=== PATIENT | female | born 1950 | race Caucasian/White ===

== ENCOUNTER 2016-12-17 12:42 | Emergency (ER) | payer OTHER ==
[2016-12-17 12:56] VITALS: TEMP 99.7
[2016-12-17] MEDS ORDERED: IPRATROPIUM/ALBUTEROL 3 ML DEYVIAL IH ONE (13:09)
[2016-12-17] MEDS ORDERED: methylPREDNISolone SOD SUCC 125 MG/2 ML VIAL IVP ONE (13:09)
[2016-12-17] MEDS ORDERED: IPRATROPIUM/ALBUTEROL 3 ML DEYVIAL ONE (13:11)
--- NOTE | 2016-12-17 13:13 | EDPHY ---
H & P Time Seen by Provider: 12/17/16 13:00 HPI/ROS: CHIEF COMPLAINT: shortness of breath HISTORY OF PRESENT ILLNESS: Patient is a 66-year-old female with a history of asthma and COPD presents to the emergency department with worsening upper respiratory illness. She states she developed congestion and cough 1 week ago. She cough significantly is able to produce only a little bit of clear phlegm. She denies chest pain. No fevers or chills. No nausea or vomiting. Patient went to see her primary care physician's office today and saw a covering physician. She states they were unable to get my oxygen above 90 so they sent me to the ER. She was given a breathing treatment at the primary office. She feels slightly better after this treatment. REVIEW OF SYSTEMS: My complete review of systems is negative except as mentioned in the HPI. Past Medical/Surgical History: Includes COPD and asthma Past surgical history: Foot surgery Social history: The patient does not smoke. She denies marijuana use. Smoking Status: Former smoker Physical Exam: GENERAL: Well-appearing, in no acute distress, alert. HEENT: Eyes normal to inspection, normal pharynx, no signs of dehydration. NECK: No thyromegaly, no lymphadenopathy, supple. RESPIRATORY: Clear to auscultation bilaterally, no rales, rhonchi or wheezing. CVS: coarse breath sounds bilaterally. Scattered upper wheezes bilaterally. No accessary muscle use. No rales or rhonchi. ABDOMEN: Soft, nontender, nondistended, no organomegaly. BACK: Normal to inspection, no CVA tenderness. SKIN: Normal color, no rash, warm, dry. No pallor. EXTREMITIES: No pedal edema, no calf tenderness, no Homans sign or cords, no joint swelling. NEURO/PSYCH: Alert and oriented x3, normal mood and affect, normal motor sensory exam. Constitutional: Initial Vital Signs Temperature (C) 37.6 C 12/17/16 12:45 Heart Rate 107 H 12/17/16 12:45 Respiratory Rate 20 12/17/16 12:45 Blood Pressure 128/75 H 12/17/16 12:45 O2 Sat (%) 84 L 12/17/16 12:45 O2 Delivery Mode Nasal Cannula O2 (L/minute) 2 Allergies/Adverse Reactions: Cat/Feline Produc *RETIRED-08/11/12 [Cat/Feline Product Derivatives] Allergy ( Verified 12/17/16 12:57) cefazolin sodium [From Ancef] Allergy (Verified 12/17/16 12:57) Rash nafcillin [Nafcillin] Allergy (Verified 12/17/16 12:57) HYPOKALEMIA Home Medications: Medication Instructions Recorded Azithromycin 250 mg PO DAILY #4 tablet 12/17/16 Dulera 200 Mcg/5 Mcg Inhaler 12/17/16 GABAPENTIN 12/17/16 Irbesartan 12/17/16 Lovastatin 12/17/16 Proair Hfa Icu (*) 12/17/16 predniSONE 40 mg PO DAILY 4 Days 12/17/16 Medical Decision Making - Diagnostics EKG Interpretation: EKG shows normal sinus rhythm, normal rate, normal axis, normal intervals. There are no ST or T-wave abnormalities. EKG is normal as interpreted by me. ED Course/Re-evaluation: In the emergency department I discussed possible etiologies with the patient and answered all her questions. The patient was noted to have an oxygen saturation of 91-93% while I was speaking with her in the room. She was not placed on supplemental oxygen at this time. She was given Solu-Medrol 125 mg IV and a DuoNeb (it is unclear the type of neb treatment they gave her at her primary care physician's office.) Laboratory studies and chest x-ray were ordered. I rechecked the patient on numerous occasions. She states she improved while here. On recheck her oxygen saturation was above 90%. The chest x-ray: Please refer the dictated report. I reviewed the imaging studies. There is no focal infiltrate. Patient does have findings of bronchitis I discussed the result with the patient. 1440: The patient ambulated well without any shortness of breath. Her oxygen saturation with no supplemental oxygen was 91-95% with ambulation. I discussed disposition options. The patient feels comfortable being discharged. She was given azithromycin orally prior to leaving the emergency department. Patient was given a prescription of prednisone. She will continue the inhaler. She will follow up closely with Dr. Brayan Prasad. She was given warnings prior to leaving. She will return with worsening symptoms. Differential Diagnosis: My differential includes but is not limited to COPD exacerbation, pneumonia, bronchitis, ACS, acute NE, bacteremia, sepsis, electrolyte abnormality, sugar abnormality - Data Points Laboratory Results: Laboratory Results 12/17/16 13:10 12/17/16 13:10 12/17/16 13:10 WBC 5.68 10^3/uL (3.80-9.50) RBC 4.63 10^6/uL (4.18-5.33) Hgb 16.4 H g/dL (12.6-16.3) Hct 48.0 H % (38.0-47.0) MCV 103.7 H fL (81.5-99.8) MCH 35.4 H pg (27.9-34.1) MCHC 34.2 g/dL (32.4-36.7) RDW 12.6 % (11.5-15.2) Plt Count 234 10^3/uL (150-400) MPV 9.3 fL (8.7-11.7) Neut % (Auto) 62.7 % (39.3-74.2) Lymph % (Auto) 23.4 % (15.0-45.0) [place] % (Auto) 11.8 % (4.5-13.0) Eos % (Auto) 1.4 % (0.6-7.6) Baso % (Auto) 0.5 % (0.3-1.7) Nucleat RBC Rel Count 0.0 % (0.0-0.2) Absolute Neuts (auto) 3.56 10^3/uL (1.70-6.50) Absolute Lymphs (auto) 1.33 10^3/uL (1.00-3.00) Absolute Monos (auto) 0.67 10^3/uL (0.30-0.80) Absolute Eos (auto) 0.08 10^3/uL (0.03-0.40) Absolute Basos (auto) 0.03 10^3/uL (0.02-0.10) Absolute Nucleated RBC 0.00 10^3/uL (0-0.01) Immature Gran % 0.2 % (0.0-1.1) Immature Gran # 0.01 10^3/uL (0.00-0.10) Sodium 140 mEq/L (134-144) Potassium 4.0 mEq/L (3.5-5.2) Chloride 100 mEq/L (97-110) Carbon Dioxide 28 mEq/l (22-31) Anion Gap 12 mEq/L (8-16) BUN 15 mg/dL (7-23) Creatinine 0.8 mg/dL (0.6-1.0) Estimated GFR > 60 Glucose 95 mg/dL (70-100) Calcium 9.6 mg/dL (8.5-10.4) NT-Pro-B Natriuret Pep 153 H pg/mL (0-125) Medications Given: Discontinued Medications Albuterol/Ipratropium (Duoneb) 3 ml IH EDNOW ONE Stop: 12/17/16 13:10 Last Admin: 12/17/16 13:23 Dose: 3 ml Methylprednisolone Sodium Succinate (Solu-Medrol) 125 mg IVP EDNOW ONE Stop: 12/17/16 13:10 Last Admin: 12/17/16 13:22 Dose: 125 mg Departure - Departure Disposition: Home, Routine, Self-Care Clinical Impression: Chronic obstructive pulmonary disease with acute exacerbation Condition: Good Instructions: COPD (Chronic Obstructive Pulmonary Disease) (ED) Additional Instructions: Take your medications as directed. Return with increasing shortness of breath, chest pain, shortness of breath or any other concerns. Referrals: Rodriguez Prasad MD [Primary Care Provider] - 1-2 days without fail
--- NOTE | 2016-12-17 13:18 | CPEKG ---
Heart Rate: 97 RR Interval: 619 P-R Interval: 144 QRSD Interval: 88 QT Interval: 324 QTC Interval: 412 P Hubbard: 51 QRS Hubbard: 33 T Wave Hubbard: 40 EKG Severity - OTHERWISE NORMAL ECG - EKG Impression: SINUS RHYTHM EKG Impression: LOW VOLTAGE IN FRONTAL LEADS Electronically Signed By: Miranda Marquez 17-Dec-2016 16:33:27
[2016-12-17 13:27] LABS: % IMMATURE GRANULYOCYTES 0.2 % (0.0-1.1); ABSOLUTE IMMATURE GRANULOCYTES 0.01 10^3/uL (0.00-0.10); ADD DIFF? NO; ADD MORPH? NO; ADD SCAN? NO; ATYPICAL LYMPHOCYTE FLAG 40 (0-99); FRAGMENT RBC FLAG 0 (0-99); HEMOGLOBIN 16.4 g/dL (12.6-16.3); LEFT SHIFT FLG 0 (0-99); LIPEMIA HEMOLYSIS FLAG 90 (0-99); MEAN CELL HEMOGLOBIN 35.4 pg (27.9-34.1); MEAN CELL HEMOGLOBIN CONCENTR. 34.2 g/dL (32.4-36.7); MEAN CELL VOLUME 103.7 fL (81.5-99.8); MEAN PLATELET VOLUME 9.3 fL (8.7-11.7); PLATELET CLUMPS FLAG 0 (0-99); PLATELET COUNT 234 10^3/uL (150-400); RED BLOOD CELL COUNT 4.63 10^6/uL (4.18-5.33); RED CELL DISTRIBUTION WIDTH 12.6 % (11.5-15.2)
[2016-12-17 13:47] LABS: ANION GAP 12 mEq/L (8-16); CALCIUM 9.6 mg/dL (8.5-10.4); CARBON DIOXIDE 28 mEq/l (22-31); CHLORIDE 100 mEq/L (97-110); CREATININE 0.8 mg/dL (0.6-1.0); GLOMERULAR FILTRATION RATE > 60; GLUCOSE 95 mg/dL (70-100); SODIUM 140 mEq/L (134-144)
[2016-12-17 14:04] VITALS: RESP 18
--- NOTE | 2016-12-17 14:22 | DX ---
PA and lateral chest - December 17, 2016 History: Dyspnea. Comparison: PA and lateral chest of November 12, 2013. Findings: The lungs are hyperexpanded with diffuse peribronchial thickening without focal consolidati on. Previously noted right mid lung atelectasis/scarring has nearly completely resolved. There is no pneumothorax or pleural effusion. The heart and pulmonary vasculature are normal. Mild degenerative c hange is present in the spine. Impression: Diffuse peribronchial thickening suggesting airways disease/bronchitis.
[2016-12-17] MEDS ORDERED: AZITHROMYCIN 250 MG TAB PO ONE (14:45)
[2016-12-17 14:56] VITALS: BP 132/84; PULSE 99; O2SAT 93
== END 2016-12-17 14:56 | disposition home or self-care (01) ==
DX: J44.1 Chronic obstructive pulmonary disease with (acute) exacerbation (principal); J45.909 Unspecified asthma, uncomplicated; Z87.891 Personal history of nicotine dependence
CPT/HCPCS: 96374

== ENCOUNTER 2016-12-20 13:55 | Inpatient (IN) | payer OTHER ==
--- NOTE | 2016-12-20 14:20 | EDPHY ---
H & P Time Seen by Provider: 12/20/16 14:12 HPI/ROS: CHIEF COMPLAINT: shortness of breath, cough HISTORY OF PRESENT ILLNESS: Patient is a 66-year-old female who presents to the emergency department with ongoing shortness of breath and hypoxia. The patient was seen in the emergency department on Saturday by me. Please refer to my dictated note. At that time the patient was given azithromycin and prednisone. She states that it drastically improved her symptoms but she still felt fatigued and tired. She states her sputum has turned yellow. She continues to have a significant cough. She now has bilateral rib pain secondary to coughing. She denies nausea or vomiting. She went to see her nurse practitioner in follow-up today and was found to have an oxygen saturation of 78%. No leg pain or swelling. REVIEW OF SYSTEMS: My complete review of systems is negative except as mentioned in the HPI. Past Medical/Surgical History: Includes COPD/asthma Social history: The patient does not smoke Smoking Status: Former smoker Physical Exam: 36.7, 132/65, 99, 16, 78% on room air Patient was placed on supplemental oxygen. Her oxygen saturation was in the 90s. GENERAL: No acute distress, alert. Patient is standing at the side of her bed going through her purse. HEENT: Eyes normal to inspection, normal pharynx, no signs of dehydration. NECK: No thyromegaly, no lymphadenopathy, supple. RESPIRATORY: patient has rales bilaterally. There is scattered wheezing.. CVS: Regular rate and rhythm, no rubs, murmurs, or gallops. ABDOMEN: Soft, nontender, nondistended, no organomegaly. BACK: Normal to inspection, no CVA tenderness. SKIN: Normal color, no rash, warm, dry. No pallor. EXTREMITIES: No pedal edema, no calf tenderness, no Homans sign or cords, no joint swelling. NEURO/PSYCH: [Alert and oriented, normal mood and affect Constitutional: Initial Vital Signs Temperature (C) 36.7 C 12/20/16 13:57 Heart Rate 99 12/20/16 13:57 Respiratory Rate 16 12/20/16 13:57 Blood Pressure 132/65 H 12/20/16 13:57 O2 Sat (%) 78 L 12/20/16 13:57 O2 Delivery Mode Nasal Cannula O2 (L/minute) 4 Allergies/Adverse Reactions: Cat/Feline Produc *RETIRED-08/11/12 [Cat/Feline Product Derivatives] Allergy ( Verified 12/17/16 12:57) cefazolin sodium [From Ancef] Allergy (Verified 12/17/16 12:57) Rash nafcillin [Nafcillin] Allergy (Verified 12/17/16 12:57) HYPOKALEMIA Home Medications: Medication Instructions Recorded Azithromycin 250 mg PO DAILY #4 tablet 12/17/16 Dulera 200 Mcg/5 Mcg Inhaler 2 puffs IH BID PRN 12/17/16 Gabapentin [Neurontin 300 MG (*)] 300 mg PO TID 12/17/16 Irbesartan [Avapro 150 mg (*)] 150 mg PO HS 12/17/16 Lovastatin 40 mg PO HS 12/17/16 Proair Hfa Icu (*) 2 puffs IH BID PRN 12/17/16 predniSONE 40 mg PO DAILY 4 Days 12/17/16 Medical Decision Making ED Course/Re-evaluation: In the emergency department I discussed possible etiologies with the patient. I reviewed her previous record. Laboratory studies including blood cultures were ordered. Chest x-ray was ordered. Patient was given Levaquin 750 mg IV. Patient's initial lab showed an elevated heart rate at 99. However, respiratory rate was normal. She is afebrile. O2 saturation was no at 78%. She did not meet sepsis criteria on initial evaluation. She was noted to have an elevated lactic acid 2.2. She is given normal saline hydration. I discussed the plan for admission with the patient and answered all her questions. 1444: I reviewed the patient's x-ray. There is no obvious focal infiltrate. I discussed the case with Dr. Gilman. He will accept the patient to [facility]. Laboratory studies are still pending. The patient is aware the plan. Dr. Gilman saw the patient in the emergency department. He recommended I give the patient prednisone 20 mg orally. This was ordered. Differential Diagnosis: My differential includes but is not limited to COPD exacerbation, pneumonia, bronchitis, empyema, hypoxemia, bacteremia, sepsis - Data Points Laboratory Results: Laboratory Results 12/20/16 14:35 12/20/16 14:35 12/20/16 14:35 WBC 9.41 10^3/uL (3.80-9.50) RBC 4.24 10^6/uL (4.18-5.33) Hgb 15.1 g/dL (12.6-16.3) Hct 43.9 % (38.0-47.0) MCV 103.5 H fL (81.5-99.8) MCH 35.6 H pg (27.9-34.1) MCHC 34.4 g/dL (32.4-36.7) RDW 12.5 % (11.5-15.2) Plt Count 260 10^3/uL (150-400) MPV 9.5 fL (8.7-11.7) Neut % (Auto) 83.9 H % (39.3-74.2) Lymph % (Auto) 12.5 L % (15.0-45.0) [place] % (Auto) 2.9 L % (4.5-13.0) Eos % (Auto) 0.0 L % (0.6-7.6) Baso % (Auto) 0.3 % (0.3-1.7) Nucleat RBC Rel Count 0.0 % (0.0-0.2) Absolute Neuts (auto) 7.89 H 10^3/uL (1.70-6.50) Absolute Lymphs (auto) 1.18 10^3/uL (1.00-3.00) Absolute Monos (auto) 0.27 L 10^3/uL (0.30-0.80) Absolute Eos (auto) 0.00 L 10^3/uL (0.03-0.40) Absolute Basos (auto) 0.03 10^3/uL (0.02-0.10) Absolute Nucleated RBC 0.00 10^3/uL (0-0.01) Immature Gran % 0.4 % (0.0-1.1) Immature Gran # 0.04 10^3/uL (0.00-0.10) ABG Lactic Acid 2.2 H mmol/L (0.5-1.6) Sodium 143 mEq/L (134-144) Potassium 4.1 mEq/L (3.5-5.2) Chloride 105 mEq/L (97-110) Carbon Dioxide 25 mEq/l (22-31) Anion Gap 13 mEq/L (8-16) BUN 24 H mg/dL (7-23) Creatinine 0.8 mg/dL (0.6-1.0) Estimated GFR > 60 Glucose 157 H mg/dL (70-100) Calcium 9.7 mg/dL (8.5-10.4) Troponin I < 0.012 ng/mL (0-0.034) NT-Pro-B Natriuret Pep 126 H pg/mL (0-125) Medications Given: Discontinued Medications Albuterol/Ipratropium (Duoneb) 3 ml IH EDNOW ONE Stop: 12/20/16 14:22 Last Admin: 12/20/16 14:45 Dose: 3 ml Departure - Departure Disposition: [facility] Inpatient Acute Clinical Impression: Chronic obstructive pulmonary disease with acute exacerbation, Hypoxia Condition: Good
[2016-12-20] MEDS ORDERED: IPRATROPIUM/ALBUTEROL 3 ML DEYVIAL IH ONE (14:21)
[2016-12-20] MEDS ORDERED: ONDANSETRON DISINTEGRATING 4 MG TAB PO PRN (14:48)
[2016-12-20] MEDS ORDERED: ALBUTEROL 3 ML DEYVIAL IH PRN (14:48)
[2016-12-20] MEDS ORDERED: ACETAMINOPHEN 325 MG TAB PO PRN (14:48)
[2016-12-20 14:49] LABS: % IMMATURE GRANULYOCYTES 0.4 % (0.0-1.1); ABSOLUTE IMMATURE GRANULOCYTES 0.04 10^3/uL (0.00-0.10); ADD DIFF? NO; ADD MORPH? NO; ADD SCAN? NO; ATYPICAL LYMPHOCYTE FLAG 50 (0-99); FRAGMENT RBC FLAG 0 (0-99); HEMATOCRIT 43.9 % (38.0-47.0); HEMOGLOBIN 15.1 g/dL (12.6-16.3); LEFT SHIFT FLG 0 (0-99); LIPEMIA HEMOLYSIS FLAG 90 (0-99); MEAN CELL HEMOGLOBIN 35.6 pg (27.9-34.1); MEAN CELL HEMOGLOBIN CONCENTR. 34.4 g/dL (32.4-36.7); MEAN CELL VOLUME 103.5 fL (81.5-99.8); MEAN PLATELET VOLUME 9.5 fL (8.7-11.7); PLATELET CLUMPS FLAG 0 (0-99); PLATELET COUNT 260 10^3/uL (150-400); RED BLOOD CELL COUNT 4.24 10^6/uL (4.18-5.33); RED CELL DISTRIBUTION WIDTH 12.5 % (11.5-15.2)
--- NOTE | 2016-12-20 14:50 | DX ---
Chest PA and lateral HISTORY: Cough, hypoxic. FINDINGS: Compare December 17, 2016, and November 12, 2013. New subtle infiltrate is found in the left lower lobe, adjacent to the left hemidiaphragm. No pleural effusion. Right lung is clear. Heart size remains normal. IMPRESSION: Mild pneumonia, left lower lobe.
[2016-12-20 15:04] LABS: ANION GAP 13 mEq/L (8-16); CALCIUM 9.7 mg/dL (8.5-10.4); CARBON DIOXIDE 25 mEq/l (22-31); CHLORIDE 105 mEq/L (97-110); CREATININE 0.8 mg/dL (0.6-1.0); GLOMERULAR FILTRATION RATE > 60; GLUCOSE 157 mg/dL (70-100); POTASSIUM 4.1 mEq/L (3.5-5.2); SODIUM 143 mEq/L (134-144)
[2016-12-20] MEDS ORDERED: NS 1,000 ML IV ONE ×2 (15:06→15:08)
[2016-12-20 15:14] LABS: TROPONIN I < 0.012 ng/mL (0-0.034)
[2016-12-20] MEDS ORDERED: predniSONE 20 MG TAB PO ONE (15:15)
--- NOTE | 2016-12-20 15:26 | PDGENHP ---
History and Physical - Chief Complaint Shortness of breath - History of Present Illness Primary care provider: Dr. Prasad Chief complaint: Acute shortness of breath History of present illness: 66-year-old female presenting with acute shortness of breath characterized as difficulty exhaling with associated productive cough and generalized fatigue. Onset of symptoms was approximately 2 weeks ago the symptoms, duration has been persistent thereafter, became particularly violaceous 1 week ago. She reports that her shortness of breath is slightly decreased with use of Proventil inhaler and she has continued to utilize her Dulera during this interval. She was initiated on steroids and azithromycin 4 days ago and has been adherent to these medications. Her shortness of breath is exacerbated with activity, and her SpO2 was 78% on room air on her clinical evaluation today. Patient otherwise denies any overt chest pain and she reports that beginning of her symptoms she was experiencing chest and sinus congestion. History Information - Allergies/Home Medication List Allergies/Adverse Reactions: Cat/Feline Produc *RETIRED-08/11/12 [Cat/Feline Product Derivatives] Allergy ( Verified 12/17/16 12:57) cefazolin sodium [From Ancef] Allergy (Verified 12/17/16 12:57) Rash nafcillin [Nafcillin] Allergy (Verified 12/17/16 12:57) HYPOKALEMIA Home Medications: Dulera 200 Mcg/5 Mcg Inhaler 2 puffs IH BID PRN 12/17/16 [Last Taken Unknown] Gabapentin [Neurontin 300 MG (*)] 300 mg PO TID 12/17/16 [Last Taken 12/20/16] Irbesartan [Avapro 150 mg (*)] 150 mg PO HS 12/17/16 [Last Taken 12/19/16] Lovastatin 40 mg PO HS 12/17/16 [Last Taken 12/19/16] Proair Hfa Icu (*) 2 puffs IH BID PRN 12/17/16 [Last Taken Unknown] I have personally reviewed and updated: family history, medical history, social history, surgical history - Past Medical History asthma (Reports onset childhood), COPD, hypertension, hyperlipidemia, pulmonary embolism (Once, 5 years ago, reportedly provoked by hospitalization and acute infection) Additional medical history: Chronic lower back pain and continuous opiate dependency - Surgical History Additional surgical history: Tonsillectomy, bunionectomy, hammertoe - Family History Additional family history: Patient is adopted and she does not know any of her family history - Social History Smoking Status: Former smoker Alcohol Use: Occasionally Drug Use: None Additional social history: She is independent in her ADLs Review of Systems ROS: 10pt was reviewed & negative except for what was stated in HPI & below Constitutional: Reports: other (Fatigue) Respiratory: Reports: cough, shortness of breath Physical Exam Temp Pulse Resp BP Pulse Ox 36.7 C 99 16 132/65 H 95 12/20/16 13:57 12/20/16 13:57 12/20/16 13:57 12/20/16 13:57 12/20/16 14:03 Constitutional: no apparent distress, appears nourished, not in pain Eyes: PERRL, anicteric sclera, EOMI Ears, Nose, Mouth, Throat: moist mucous membranes, hearing normal, ears appear normal, no oral mucosal ulcers Cardiovascular: regular rate and rhythym, no murmur, rub, or gallop, No edema Respiratory: reduced air movement (On expiration), expiratory wheeze, bronchial breath sounds, No inspiratory crackles, No respiratory distress Gastrointestinal: normoactive bowel sounds, soft, non-tender abdomen, no palpable masses Skin: warm, normal color, no rashes or abrasions, no fluctuance, no induration, No mottled Neurologic: AAOx3, sensation intact bilaterally, No weakness Psychiatric: interacting appropriately, not anxious, not encephalopathic, thought process linear Lab Data & Imaging Review 12/20/16 14:35 12/20/16 14:35 WBC 9.41 10^3/uL (3.80-9.50) 12/20/16 14:35 RBC 4.24 10^6/uL (4.18-5.33) 12/20/16 14:35 Hgb 15.1 g/dL (12.6-16.3) 12/20/16 14:35 Hct 43.9 % (38.0-47.0) 12/20/16 14:35 MCV 103.5 fL (81.5-99.8) H 12/20/16 14:35 MCH 35.6 pg (27.9-34.1) H 12/20/16 14:35 MCHC 34.4 g/dL (32.4-36.7) 12/20/16 14:35 RDW 12.5 % (11.5-15.2) 12/20/16 14:35 Plt Count 260 10^3/uL (150-400) 12/20/16 14:35 MPV 9.5 fL (8.7-11.7) 12/20/16 14:35 Neut % (Auto) 83.9 % (39.3-74.2) H 12/20/16 14:35 Lymph % (Auto) 12.5 % (15.0-45.0) L 12/20/16 14:35 [place] % (Auto) 2.9 % (4.5-13.0) L 12/20/16 14:35 Eos % (Auto) 0.0 % (0.6-7.6) L 12/20/16 14:35 Baso % (Auto) 0.3 % (0.3-1.7) 12/20/16 14:35 Nucleat RBC Rel Count 0.0 % (0.0-0.2) 12/20/16 14:35 Absolute Neuts (auto) 7.89 10^3/uL (1.70-6.50) H 12/20/16 14:35 Absolute Lymphs (auto) 1.18 10^3/uL (1.00-3.00) 12/20/16 14:35 Absolute Monos (auto) 0.27 10^3/uL (0.30-0.80) L 12/20/16 14:35 Absolute Eos (auto) 0.00 10^3/uL (0.03-0.40) L 12/20/16 14:35 Absolute Basos (auto) 0.03 10^3/uL (0.02-0.10) 12/20/16 14:35 Absolute Nucleated RBC 0.00 10^3/uL (0-0.01) 12/20/16 14:35 Immature Gran % 0.4 % (0.0-1.1) 12/20/16 14:35 Immature Gran # 0.04 10^3/uL (0.00-0.10) 12/20/16 14:35 ABG Lactic Acid 2.2 mmol/L (0.5-1.6) H 12/20/16 14:35 Sodium 143 mEq/L (134-144) 12/20/16 14:35 Potassium 4.1 mEq/L (3.5-5.2) 12/20/16 14:35 Chloride 105 mEq/L (97-110) 12/20/16 14:35 Carbon Dioxide 25 mEq/l (22-31) 12/20/16 14:35 Anion Gap 13 mEq/L (8-16) 12/20/16 14:35 BUN 24 mg/dL (7-23) H 12/20/16 14:35 Creatinine 0.8 mg/dL (0.6-1.0) 12/20/16 14:35 Estimated GFR > 60 12/20/16 14:35 Glucose 157 mg/dL (70-100) H 12/20/16 14:35 Calcium 9.7 mg/dL (8.5-10.4) 12/20/16 14:35 Troponin I < 0.012 ng/mL (0-0.034) 12/20/16 14:35 NT-Pro-B Natriuret Pep 126 pg/mL (0-125) H 12/20/16 14:35 Visualized and Interpreted Chest x-ray results: Yes Chest X-Ray results: no infiltrate Visualized and Interpreted EKG results: Yes EKG Interpretation: Positive for: other (Normal sinus rhythm) Assessment & Plan Assessment: 66-year-old female presents with acute COPD exacerbation Plan: 1. COPD exacerbation. Acute, new problem, further workup indicated. Evidenced by an SpO2 of 78% on room air plus symptomatic shortness of breath plus audible expiratory wheezes and bronchial breath sounds, unclear precipitant. -suspect precipitant is URI, but she has history of pulmonary embolism and should rule out PE with D-dimer -if D-dimer positive, will get CT angiogram, discussed with patient -placed on scheduled nebs, p.r.n. albuterol -increase prednisone to 60 mg daily, patient receiving this at noon daily -adjust antibiotics from azithromycin to levofloxacin to reduce duration of symptoms by reducing airway inflammation -continue supplemental oxygen -patient may require supplemental oxygen at time of discharge 2. Hypertension. Chronic, continue patient's home medications once reconciled 3. Chronic pain with continuous opiate dependency. Continue patient's pain medications once reconciled -outside records reviewed including 11/15/[address] Mann Syed for patient's most recent hospitalization for hypokalemia in the setting of nausea vomiting and MSSA epidural abscess treated by methicillin, adjusted to Ancef secondary to GI side effects Diet. Regular Prophylaxis. High risk patient, Lovenox 40 Code status. Full, MPOA are her son and daughter Disposition. Anticipated discharge is 12/21/2016, pending further workup and clinical stabilization of condition outlined above. If patient requires greater than 48 hours inpatient hospitalization for ongoing treatment with nebulizers, her status will be upgraded to inpatient tomorrow.
[2016-12-20 15:29] LABS: BILIRUBIN,TOTAL 0.5 mg/dL (0.1-1.4)
[2016-12-20 15:32] LABS: INR 0.91 (0.83-1.16); PROTIME(PATIENT) 12.2 SEC (12.0-15.0)
[2016-12-20 15:33] LABS: APTT 25.4 SEC (23.0-38.0)
[2016-12-20] MEDS: GABAPENTIN 300 MG CAP PO SCH ×2 (16:30→22:19)
[2016-12-20] MEDS ORDERED: ALBUTEROL IH PRN (16:38)
[2016-12-20] MEDS ORDERED: DULERA IH PRN (16:38)
[2016-12-20] MEDS ORDERED: ALBUTEROL 60 PUFFS/8 GM MDI IH PRN (16:45)
[2016-12-20] MEDS: ENOXAPARIN 40 MG/0.4 ML SYR SC SCH (16:47)
[2016-12-20] MEDS: IPRATROPIUM/ALBUTEROL 3 ML DEYVIAL IH SCH ×2 (17:42→22:31)
[2016-12-20] MEDS: LOVASTATIN 40 MG PO SCH (20:35)
[2016-12-20] MEDS: IRBESARTAN 150 MG TAB PO SCH (20:36)
[2016-12-20] MEDS ORDERED: PRAVASTATIN SODIUM 40 MG TAB PO SCH (21:00)
[2016-12-21] MEDS: IPRATROPIUM/ALBUTEROL 3 ML DEYVIAL IH SCH ×4 (05:34→23:24)
[2016-12-21 05:50] LABS: % IMMATURE GRANULYOCYTES 0.4 % (0.0-1.1); ABSOLUTE IMMATURE GRANULOCYTES 0.03 10^3/uL (0.00-0.10); ADD DIFF? NO; ADD MORPH? NO; ADD SCAN? NO; ATYPICAL LYMPHOCYTE FLAG 50 (0-99); FRAGMENT RBC FLAG 0 (0-99); HEMATOCRIT 40.5 % (38.0-47.0); HEMOGLOBIN 13.6 g/dL (12.6-16.3); LEFT SHIFT FLG 0 (0-99); LIPEMIA HEMOLYSIS FLAG 80 (0-99); MEAN CELL HEMOGLOBIN 34.7 pg (27.9-34.1); MEAN CELL HEMOGLOBIN CONCENTR. 33.6 g/dL (32.4-36.7); MEAN CELL VOLUME 103.3 fL (81.5-99.8); PLATELET CLUMPS FLAG 0 (0-99); PLATELET COUNT 242 10^3/uL (150-400); RED BLOOD CELL COUNT 3.92 10^6/uL (4.18-5.33); RED CELL DISTRIBUTION WIDTH 12.3 % (11.5-15.2)
[2016-12-21 06:21] LABS: ANION GAP 7 mEq/L (8-16); CALCIUM 8.8 mg/dL (8.5-10.4); CARBON DIOXIDE 27 mEq/l (22-31); CHLORIDE 108 mEq/L (97-110); CREATININE 0.7 mg/dL (0.6-1.0); GLOMERULAR FILTRATION RATE > 60; GLUCOSE 105 mg/dL (70-100); SODIUM 142 mEq/L (134-144)
[2016-12-21] MEDS: GABAPENTIN 300 MG CAP PO SCH ×3 (08:47→22:57)
[2016-12-21] MEDS ORDERED: predniSONE 20 MG TAB PO SCH ×2 (09:00→10:39)
[2016-12-21] MEDS: ENOXAPARIN 40 MG/0.4 ML SYR SC SCH (10:39)
[2016-12-21] MEDS ORDERED: LACTULOSE 20 GM/30 ML UDCUP PO PRN (15:54)
[2016-12-21] MEDS ORDERED: POLYETHYLENE GLYCOL 3350 17 GM PKT PO PRN (15:54)
[2016-12-21] MEDS ORDERED: MAGNESIUM HYDROXIDE 30 ML UDCUP PO PRN (15:54)
[2016-12-21] MEDS ORDERED: BISACODYL 10 MG SUPP PR PRN (15:54)
[2016-12-21] MEDS: guaiFENesin 600 MG TAB.ER PO SCH ×2 (16:54→20:07)
--- NOTE | 2016-12-21 17:38 | HOSPPROG ---
Hospitalist Progress Note Assessment/Plan: * Asthma/COPD exacerbation -still extensive wheeze - continue inpatient treatment -prednisone, nebs * Pneumonia -levaquin * Acute respiratory failure -still on O2 * HTN -continue Avapro Subjective: Better but still lots of wheeze Objective: Vital Signs Temp Pulse Resp BP Pulse Ox 36.4 C 94 18 113/68 91 L 12/21/16 15:08 12/21/16 15:08 12/21/16 15:08 12/21/16 15:08 12/21/16 15:08 12/20/16 12/21/16 12/22/16 05:59 05:59 05:59 Intake Total 700 Balance 700 PT 12.2 SEC (12.0-15.0) 12/20/16 14:35 INR 0.91 (0.83-1.16) 12/20/16 14:35 - Physical Exam Constitutional: no apparent distress, appears nourished, not in pain Cardiovascular: regular rate and rhythym, no murmur, rub, or gallop Respiratory: no respiratory distress, expiratory wheeze, inspiratory crackles, rhonchi Gastrointestinal: normoactive bowel sounds, soft, non-tender abdomen, no palpable masses Skin: no rashes or abrasions, no fluctuance, no induration Neurologic: AAOx3, sensation intact bilaterally Psychiatric: interacting appropriately, not anxious, not encephalopathic, thought process linear ICD10 Worksheet Patient Problems: Problems Problem Status Diagnosed Chronic Disease [facility]/Transitional Care Acute Chronic obstructive pulmonary disease with acute exacerbation Acute Hypoxia Acute
[2016-12-21] MEDS: IRBESARTAN 150 MG TAB PO SCH (20:06)
[2016-12-21] MEDS: SENNOSIDES/DOCUSATE SODIUM TAB PO SCH (20:07)
[2016-12-21] MEDS: LOVASTATIN 40 MG PO SCH (20:08)
[2016-12-22] MEDS: SENNOSIDES/DOCUSATE SODIUM TAB PO SCH (08:13)
[2016-12-22] MEDS: GABAPENTIN 300 MG CAP PO SCH (08:15)
[2016-12-22] MEDS: guaiFENesin 600 MG TAB.ER PO SCH (08:15)
[2016-12-22] MEDS: IPRATROPIUM/ALBUTEROL 3 ML DEYVIAL IH SCH (08:28)
[2016-12-22] MEDS ORDERED: predniSONE 20 MG TAB PO SCH (09:00)
--- NOTE | 2016-12-22 09:14 | HOSPPROG ---
Hospitalist Progress Note Assessment/Plan: #Acute hypoxemic resp failure -sats in 80s on RA will DC on oxygen #Asthma exacerbation -pred and LQ for 5 days #PNA: LQ Disp: DC today Subjective: feeling better Objective: Vital Signs Temp Pulse Resp BP Pulse Ox 36.3 C 84 14 121/71 H 85 L 12/22/16 08:00 12/22/16 08:00 12/22/16 08:00 12/22/16 08:00 12/22/16 08:00 12/21/16 12/22/16 12/23/16 05:59 05:59 05:59 Intake Total 1400 Balance 1400 PT 12.2 SEC (12.0-15.0) 12/20/16 14:35 INR 0.91 (0.83-1.16) 12/20/16 14:35 - Physical Exam Constitutional: no apparent distress Eyes: PERRL Ears, Nose, Mouth, Throat: moist mucous membranes Cardiovascular: regular rate and rhythym Respiratory: other (few wheezes, but moving air) Gastrointestinal: normoactive bowel sounds Genitourinary: no bladder fullness Skin: warm Musculoskeletal: full muscle strength Neurologic: AAOx3 ICD10 Worksheet Patient Problems: Problems Problem Status Diagnosed Chronic Disease Mgmt/Transitional Care Acute Chronic obstructive pulmonary disease with acute exacerbation Acute Hypoxia Acute
[2016-12-22 12:43] VITALS: BP 124/75; PULSE 90; RESP 16; TEMP 98.4; O2SAT 87
--- NOTE | 2016-12-22 14:44 | GDS ---
[f rep st] DISCHARGE SUMMARY DISCHARGE DIAGNOSES: 1. Acute hypoxemic respiratory failure. 2. Chronic obstructive pulmonary disease exacerbation. 3. Community-acquired pneumonia. 4. Benign hypertension. HISTORY OF PRESENT ILLNESS: The patient is a 66-year-old female with a history of asthma/COPD, presenting with a productive cough and generalized fatigue. Symptoms began 2 weeks ago and have been persistent. She was seen by her PCP and started on Azithromax and prednisone, in which she has taken for the last couple days. Symptoms were not improving, so she went back to PCP and SpO2 was 78% on room air. HOSPITAL COURSE BY PROBLEM: 1. Acute hypoxemic respiratory failure: secondary to 2. Asthma/chronic obstructive pulmonary disease exacerbation: due to pneumonia. Treated with DuoNebs, steroids, and Levaquin with improvement of symptoms. She is still requiring oxygen at discharge. She should follow up with her PCP for reevaluation. Will complete a 5-day course of Levaquin and prednisone. Influenza was negative. 3. Community-acquired pneumonia. Will continue 5 days of Levaquin. 4. COPD/asthma exacerbation. Again, patient to continue Dulera and p.r.n. albuterol along with Levaquin and steroids. 5. Benign hypertension. Continue home medications. DISPOSITION: Patient is stable for discharge. Recommend followup with her PCP within 1 week. /[id number]/MODL MTDD
== END 2016-12-22 14:16 | disposition home or self-care (01) | DRG 190 ==
LOC: F2W 16:16 → OBSVTOIN 12-21 10:40 → INTOOBSV 12-21 10:40
PROVIDERS: ADMIT Internal Medicine; ATTEND Internal Medicine
DX: J44.0 Chronic obstructive pulmonary disease with (acute) lower respiratory infection (principal); J18.9 Pneumonia, unspecified organism; J44.1 Chronic obstructive pulmonary disease with (acute) exacerbation; J96.01 Acute respiratory failure with hypoxia; G89.29 Other chronic pain; M54.5 Low back pain; F11.20 Opioid dependence, uncomplicated; I10 Essential (primary) hypertension; E78.5 Hyperlipidemia, unspecified; Z87.891 Personal history of nicotine dependence
CPT/HCPCS: G0378; G0463-PO; J1650; J1956

== ENCOUNTER → 2016-12-24 | Outpatient (CLI) | payer OTHER ==
--- NOTE | 2016-12-24 15:22 | MA ---
Screening Digital Mammogram With iCAD Analysis Clinical Indications: Routine screening. Technique: Standard cephalocaudal projections are obtained. Digital breast tomosynthesis was performe d in the MLO projection with reconstruction at 1.0 mm slice thickness and composite MLO views reconst ructed. This examination is processed by the iCAD computer aided detection system. Comparison: December 2015, December 2014, December 2013, May 2012, May 2011, May 2010, May 2009, May. Breast density: Type C: Heterogeneously dense. Findings: CAD was reviewed. No masses, suspicious calcifications or secondary signs of malignancy are seen. There has been no significant change in the appearance of either breast. Impression: Negative mammogram. BI-RADS 1. Recommendation: Routine mammographic screening in one year as long as physical examination is negativ e in this patient with heterogeneously dense breast parenchyma. [facility] will send a result letter to the patient. Negative mammography should not preclude additional workup of a clinically suspicious finding. The patient's information is entered into a reminder system with a target due date for her next mammo gram.
== END ==
LOC: FIMAGING 11:55
DX: Z12.31 Encounter for screening mammogram for malignant neoplasm of breast (principal)
CPT/HCPCS: G0202

== ENCOUNTER → 2017-01-28 | Outpatient (CLI) | payer OTHER | LOC: BHFA 13:15 | PROVIDERS: ATTEND Internal Medicine Cardiovascular Disease | DX: I34.0 Nonrheumatic mitral (valve) insufficiency (principal) ==

== ENCOUNTER 2017-04-13 12:19 | Inpatient (IN) | payer OTHER ==
[2017-04-13] MEDS ORDERED: predniSONE 20 MG TAB PO ONE (13:01)
[2017-04-13] MEDS ORDERED: IPRATROPIUM/ALBUTEROL 3 ML DEYVIAL IH ONE (13:01)
--- NOTE | 2017-04-13 13:02 | EDPHY ---
H & P Stated Complaint: cough/wheezing/on abx increasing oxygen requirement Time Seen by Provider: 04/13/17 12:48 HPI/ROS: Chief Complaint: Cough, shortness of breath HPI: 67-year-old woman with a history of COPD has had 3 days of upper respiratory symptoms with worsening cough, difficulty breathing and wheezing for the last 2 days. Patient was actually seen by her health information managers Dr. Dong Kidd on Saturday and was well. Following that she had worsening shortness of breath, worsening wheeze per, she is been requiring 4 L of oxygen via nasal cannula maintaining her oxygen saturations in the low 90s. Temperature last night was 103.2. She was started on azithromycin on but symptoms do not seem to be improving at this time. No chest pain. No nausea or vomiting. ROS: 10 point Review of Systems is negative except as noted in the HPI. PMH: COPD, hyperlipidemia, with mitral insufficiency Medications: Mucinex ProAir Spiriva Gabapentin Nervous are Lovastatin Aspirin Zyrtec Allergies: Nafcillin Ancef Latex Social History: Past smoking, no alcohol, no recreational drug use Family History: non-contributory Physical Exam: Gen: Awake, Alert, No Distress HEENT: Nose: no rhinorrhea Eyes: PERRLA, EOMI Mouth: Moist mucosa Neck: Supple, no JVD Chest: nontender, diffuse expiratory wheeze with no focal crackles Heart: S1, S2 normal, no murmur Abd: Soft, non-tender, no guarding Back: no CVA tenderness, no midline tenderness Ext: no edema, non-tender Skin: no rash Neuro: CN II-XII intact, Sensation grossly intact, Strength 5/5 in bilateral upper and lower extremities - Personal History Current Tetanus/Diphtheria Vaccine: Yes Tetanus Vaccine Date: < 10 YEARS - Medical/Surgical History Hx Asthma: Yes Hx Chronic Respiratory Disease: Yes Hx Diabetes: No Hx Cardiac Disease: No Hx Renal Disease: No Hx Cirrhosis: No Hx Alcoholism: No Hx HIV/AIDS: No Hx Splenectomy or Spleen Trauma: No Other PMH: COPD, ASTHMA, former smoker, 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 - Social History Smoking Status: Former smoker Constitutional: Initial Vital Signs Temperature (C) 37.3 C 04/13/17 12:31 Heart Rate 90 04/13/17 12:31 Respiratory Rate 20 04/13/17 12:31 Blood Pressure 104/58 L 04/13/17 12:31 O2 Sat (%) 91 L 04/13/17 12:31 O2 Delivery Mode Nasal Cannula O2 (L/minute) 4 Allergies/Adverse Reactions: Cat/Feline Produc *RETIRED-08/11/12 [Cat/Feline Product Derivatives] Allergy ( Verified 04/13/17 12:29) cefazolin sodium [From Ancef] Allergy (Verified 04/13/17 12:29) Rash nafcillin [Nafcillin] Allergy (Verified 04/13/17 12:29) HYPOKALEMIA Home Medications: Medication Instructions Recorded Gabapentin [Neurontin 300 MG (*)] 300 mg PO TID 12/17/16 Irbesartan [Avapro 150 mg (*)] 150 mg PO HS 12/17/16 Lovastatin 40 mg PO HS 12/17/16 Proair Hfa Icu (*) 2 puffs IH BID PRN 12/17/16 AZITHROMYCIN 04/13/17 Spiriva Handihaler 04/13/17 Medical Decision Making - Diagnostics Imaging Results: Imaging Impressions Chest X-Ray 04/13/17 13:01 Impression: Mild underlying bronchitis. Mild interstitial prominence at both lung bases, which could represent atelectasis or infiltrate. Imaging: I viewed and interpreted images myself ED Course/Re-evaluation: 67-year-old with a history of COPD with a infective exacerbation. Will get a chest x-ray. DuoNeb, prednisone, blood work. I anticipate given her new oxygen requirement she will require hospitalization for further care. Patient's x-rays noted for bilateral lower lobe atelectasis versus infiltrate. She is afebrile. No white count. Will start her on levofloxacin given her allergic to cephalosporins. She is already taking azithromycin. Will be admitted to the hospitalist under Dr. Olsen. - Data Points Laboratory Results: Laboratory Results 04/13/17 13:00 04/13/17 04/13/17 13:00 13:00 WBC 5.08 10^3/uL 10^3/uL (3.80-9.50) RBC 3.89 10^6/uL L 10^6/uL (4.18-5.33) Hgb 13.3 g/dL g/dL (12.6-16.3) Hct 39.7 % % (38.0-47.0) MCV 102.1 fL H fL (81.5-99.8) MCH 34.2 pg H pg (27.9-34.1) MCHC 33.5 g/dL g/dL (32.4-36.7) RDW 12.9 % % (11.5-15.2) Plt Count 186 10^3/uL 10^3/uL (150-400) MPV 9.5 fL fL (8.7-11.7) Neut % (Auto) 47.4 % % (39.3-74.2) Lymph % (Auto) 39.0 % % (15.0-45.0) Yancey % (Auto) 12.6 % % (4.5-13.0) Eos % (Auto) 0.2 % L % (0.6-7.6) Baso % (Auto) 0.4 % % (0.3-1.7) Nucleat RBC Rel Count 0.0 % % (0.0-0.2) Absolute Neuts (auto) 2.41 10^3/uL 10^3/uL (1.70-6.50) Absolute Lymphs (auto) 1.98 10^3/uL 10^3/uL (1.00-3.00) Absolute Monos (auto) 0.64 10^3/uL 10^3/uL (0.30-0.80) Absolute Eos (auto) 0.01 10^3/uL L 10^3/uL (0.03-0.40) Absolute Basos (auto) 0.02 10^3/uL 10^3/uL (0.02-0.10) Absolute Nucleated RBC 0.00 10^3/uL 10^3/uL (0-0.01) Immature Gran % 0.4 % % (0.0-1.1) Immature Gran # 0.02 10^3/uL 10^3/uL (0.00-0.10) Sodium Pending Potassium Pending Chloride Pending Carbon Dioxide Pending Anion Gap Pending BUN Pending Creatinine Pending Estimated GFR Pending Glucose Pending Calcium Pending Medications Given: Discontinued Medications Albuterol/Ipratropium (Duoneb) 3 ml IH EDNOW ONE Stop: 04/13/17 13:02 Last Admin: 04/13/17 13:13 Dose: 3 ml Prednisone (Prednisone) 60 mg PO EDNOW ONE Stop: 04/13/17 13:02 Last Admin: 04/13/17 13:13 Dose: 60 mg Departure - Departure Disposition: [facility] Inpatient Acute Clinical Impression: Chronic obstructive pulmonary disease with acute exacerbation, Acute bronchitis Condition: Fair Referrals: Michelle Bailon MD [Primary Care Provider] - As per Instructions
[2017-04-13 13:21] LABS: % IMMATURE GRANULYOCYTES 0.4 % (0.0-1.1); ABSOLUTE IMMATURE GRANULOCYTES 0.02 10^3/uL (0.00-0.10); ADD DIFF? NO; ADD MORPH? NO; ADD SCAN? NO; ATYPICAL LYMPHOCYTE FLAG 70 (0-99); FRAGMENT RBC FLAG 0 (0-99); HEMATOCRIT 39.7 % (38.0-47.0); HEMOGLOBIN 13.3 g/dL (12.6-16.3); LEFT SHIFT FLG 0 (0-99); LIPEMIA HEMOLYSIS FLAG 80 (0-99); MEAN CELL HEMOGLOBIN 34.2 pg (27.9-34.1); MEAN CELL HEMOGLOBIN CONCENTR. 33.5 g/dL (32.4-36.7); MEAN CELL VOLUME 102.1 fL (81.5-99.8); MEAN PLATELET VOLUME 9.5 fL (8.7-11.7); PLATELET CLUMPS FLAG 0 (0-99); PLATELET COUNT 186 10^3/uL (150-400); RED BLOOD CELL COUNT 3.89 10^6/uL (4.18-5.33); RED CELL DISTRIBUTION WIDTH 12.9 % (11.5-15.2)
[2017-04-13 13:56] LABS: ANION GAP 11 mEq/L (8-16); CARBON DIOXIDE 24 mEq/l (22-31); CHLORIDE 104 mEq/L (97-110); CREATININE 0.9 mg/dL (0.6-1.0); GLOMERULAR FILTRATION RATE > 60; GLUCOSE 93 mg/dL (70-100); POTASSIUM 4.1 mEq/L (3.5-5.2); SODIUM 139 mEq/L (134-144)
[2017-04-13] MEDS ORDERED: ACETAMINOPHEN 325 MG TAB PO PRN (14:15)
[2017-04-13] MEDS ORDERED: ONDANSETRON DISINTEGRATING 4 MG TAB PO PRN (14:15)
[2017-04-13] MEDS ORDERED: ONDANSETRON 4 MG/2 ML VIAL IVP PRN (14:15)
[2017-04-13] MEDS ORDERED: IPRATROPIUM/ALBUTEROL 3 ML DEYVIAL IH PRN (14:17)
[2017-04-13] MEDS ORDERED: NS 1,000 ML IV SCH (15:00)
--- NOTE | 2017-04-13 15:08 | GHP ---
[f rep st] HISTORY AND PHYSICAL DATE OF ADMISSION: 04/13/2017 CHIEF COMPLAINT: COPD exacerbation/acute on chronic hypoxemic respiratory failure. HISTORY OF PRESENT ILLNESS: Patient is a pleasant 67-year-old female with history of COPD, hypertension, hyperlipidemia, presenting with increased shortness of breath. The patient had been previously hospitalized with pneumonia earlier this year and was discharged on oxygen. She has been weaning down and is currently on 1 L. She has had congestion and upper respiratory infection symptoms over the past week. She was seen by her garland machine operator, Dr. Kidd, on April 09 and was deemed to be in good health. He did do a sleep study, and she was found to have VJ. Her symptoms progressed with cough with yellow sputum production and increased congestion. Thus, saw her PCP on 04/11. She was prescribed a Z-Felton at that time, was diagnosed with bronchitis. Reason she presented today is she had sudden onset of shortness of breath overnight. She checked her oxygen at home, and it was at 69%. She did feel more short of breath. She reports fevers up to 103 at home with diarrhea yesterday, also chills and sweats. No headache or chest pain. REVIEW OF SYSTEMS: I completed a 10-point review of systems, negative except as noted in HPI. PAST MEDICAL HISTORY: Asthma, COPD, chronic hypoxic respiratory failure on 1 L , hypertension, hyperlipidemia, pulmonary embolism, chronic back pain, VJ recently diagnosed, spinal abscess treated with IV antibiotics. PAST SURGICAL HISTORY: Tonsillectomy, bunionectomy, hammertoe. SOCIAL HISTORY: Lives in [place]. Social alcohol. Smoked tobacco 25 years, less than a pack a day. ALLERGIES: See list. FAMILY HISTORY: Was adopted. PHYSICAL EXAMINATION: VITAL SIGNS: Temperature 37.3, blood pressure 104/58, heart rate in the 90s, respirations 20, 91% on 4 L. GENERAL: Sitting up in bed , in no acute distress, smiling. HEENT: PERRLA. Mildly dry mucous membranes. CV: Regular rate and rhythm. No murmurs, gallops, or rubs. LUNGS: Rhonchorous lung sounds throughout with wheezing and decreased air movement. ABDOMEN: Soft, nontender, nondistended. Positive bowel sounds. : No suprapubic tenderness. No Hernandez. MUSCULOSKELETAL: 5/5 upper lower extremity strength. SKIN: Skin tear on right forearm, scabbed over lesions over left saeed. NEURO: 2 through 12 intact. PSYCH: Alert and oriented x3, very pleasant. LABORATORY: WBCs 5, hemoglobin 13, hematocrit 39, platelets 186. Sodium 139, potassium 4.1, chloride 106, carbon dioxide 24, creatinine 0.9, glucose 93, calcium 9. IMAGING: Chest x-ray, personally reviewed by me. Mild haziness, lower lobes, but no evidence of opacity or edema. ASSESSMENT AND PLAN: 1. Acute chronic obstructive pulmonary disease exacerbation. Suspect viral etiology, as no opacity on chest x-ray. Will check a viral panel. Treat with DuoNeb, prednisone, and will change to Levaquin, as previously on azithromycin. 2. Acute on chronic hypoxemic respiratory failure secondary to COPD exacerbation, as stated above. Plan as stated above. 3. Benign hypertension. Continue Avapro. 4. Chronic back pain. Continue Neurontin. 5. Hyperlipidemia. Statin. 6. Diet, regular. 7. DVT prophylaxis. Ambulatory. DISPOSITION: Patient warrants observation admission, given acute on chronic hypoxemic respiratory failure requiring pulse oximetry, DuoNeb, and antibiotics. /[id number]/MODL MTDD
[2017-04-13] MEDS ORDERED: Herbals/Supplements -Info Only PO SCH (15:30)
[2017-04-13] MEDS: GABAPENTIN 300 MG CAP PO SCH ×2 (15:48→22:07)
[2017-04-13] MEDS: IPRATROPIUM/ALBUTEROL 3 ML DEYVIAL IH SCH ×2 (16:20→20:44)
[2017-04-13] MEDS: CETIRIZINE 10 MG TAB PO SCH (17:38)
[2017-04-13] MEDS: guaiFENesin 600 MG TAB.ER PO SCH (22:06)
[2017-04-13] MEDS: PRAVASTATIN SODIUM 40 MG TAB PO SCH (22:07)
[2017-04-13] MEDS: IRBESARTAN 150 MG TAB PO SCH (22:07)
[2017-04-14 05:42] LABS: ANION GAP 8 mEq/L (8-16); CALCIUM 8.8 mg/dL (8.5-10.4); CARBON DIOXIDE 25 mEq/l (22-31); CHLORIDE 111 mEq/L (97-110); CREATININE 0.7 mg/dL (0.6-1.0); GLOMERULAR FILTRATION RATE > 60; GLUCOSE 123 mg/dL (70-100); POTASSIUM 4.7 mEq/L (3.5-5.2); SODIUM 144 mEq/L (134-144)
[2017-04-14] MEDS: IPRATROPIUM/ALBUTEROL 3 ML DEYVIAL IH SCH ×4 (06:13→21:45)
[2017-04-14] MEDS: OMEGA-3 FATTY ACIDS 1,000 MG CAP PO SCH (08:20)
[2017-04-14] MEDS: guaiFENesin 600 MG TAB.ER PO SCH ×2 (08:21→20:41)
[2017-04-14] MEDS: MULTIVITAMINS 1 EACH TAB PO SCH (08:21)
[2017-04-14] MEDS: ENOXAPARIN 40 MG/0.4 ML SYR SC SCH (08:21)
[2017-04-14] MEDS: CYANO/VITAMIN B12 1000 MCG TAB PO SCH (08:21)
[2017-04-14] MEDS: ASPIRIN EC 81 MG TAB PO SCH (08:21)
[2017-04-14] MEDS: predniSONE 20 MG TAB PO SCH (08:21)
[2017-04-14] MEDS: CHOLECALCIFEROL VIT D3 2,000 UNITS TAB/CAP PO SCH (08:21)
[2017-04-14] MEDS: GABAPENTIN 300 MG CAP PO SCH ×3 (08:27→21:56)
[2017-04-14] MEDS ORDERED: ALBUTEROL 3 ML DEYVIAL IH PRN (08:34)
[2017-04-14] MEDS ORDERED: IPRATROPIUM/ALBUTEROL 3 ML DEYVIAL IH PRN (08:34)
--- NOTE | 2017-04-14 11:33 | HOSPPROG ---
Hospitalist Progress Note Assessment/Plan: #Acute on chronic hypoxic resp failure: due to COPD exacerbation. No infiltrate on CXR. Viral panel pending #COPD exacerbation: worse today. Con Nebs, pred, abx #Benign HTN: home med #HLD: statin #Chronic back pain: gabapentin #DVT ppx: ambulating #Disp: warrants inpatient admission with persistent dyspnea, Cont nebs, abx Subjective: progressive SOB overnight Objective: Vital Signs Temp Pulse Resp BP Pulse Ox 36.6 C 88 18 112/69 96 04/14/17 08:00 04/14/17 10:50 04/14/17 10:50 04/14/17 08:00 04/14/17 10:50 Laboratory Results 04/14/17 04:15 04/13/17 04/14/17 04/15/17 05:59 05:59 05:59 Intake Total 906 Balance 906 - Physical Exam Constitutional: no apparent distress Eyes: PERRL Ears, Nose, Mouth, Throat: moist mucous membranes, hearing normal Cardiovascular: regular rate and rhythym, no murmur, rub, or gallop, edema (no LE edema) Respiratory: expiratory wheeze (diffuse), rhonchi (increased rhonchi), other Gastrointestinal: normoactive bowel sounds, soft, non-tender abdomen, no palpable masses Genitourinary: no bladder fullness Skin: warm Musculoskeletal: full muscle strength Neurologic: AAOx3 Psychiatric: interacting appropriately ICD10 Worksheet Patient Problems: Problems Problem Status Onset Acute bronchitis Acute Chronic obstructive pulmonary disease with acute exacerbation Acute Chronic Disease Mgmt/Transitional Care Acute Hypoxia Acute
[2017-04-14] MEDS: CETIRIZINE 10 MG TAB PO SCH (17:01)
[2017-04-14] MEDS: IRBESARTAN 150 MG TAB PO SCH (20:42)
[2017-04-14] MEDS: PRAVASTATIN SODIUM 40 MG TAB PO SCH (20:42)
[2017-04-14] MEDS ORDERED: FAMOTIDINE 20 MG TAB PO PRN (22:57)
[2017-04-14] MEDS ORDERED: CALCIUM CARBONATE 500 MG CHEWABLE TAB PO PRN (22:57)
[2017-04-15] MEDS: IPRATROPIUM/ALBUTEROL 3 ML DEYVIAL IH SCH ×4 (05:20→22:07)
[2017-04-15] MEDS: guaiFENesin 600 MG TAB.ER PO SCH (08:37)
[2017-04-15] MEDS: CHOLECALCIFEROL VIT D3 2,000 UNITS TAB/CAP PO SCH (08:38)
[2017-04-15] MEDS: ASPIRIN EC 81 MG TAB PO SCH (08:38)
[2017-04-15] MEDS: MULTIVITAMINS 1 EACH TAB PO SCH (08:39)
[2017-04-15] MEDS: GABAPENTIN 300 MG CAP PO SCH ×4 (08:39→21:17)
[2017-04-15] MEDS: predniSONE 20 MG TAB PO SCH (08:39)
[2017-04-15] MEDS: OMEGA-3 FATTY ACIDS 1,000 MG CAP PO SCH (08:39)
[2017-04-15] MEDS: CYANO/VITAMIN B12 1000 MCG TAB PO SCH (08:40)
[2017-04-15] MEDS ORDERED: TIOTROPIUM INHALER 18 MCG/DOSE 5 DOSE/MDI IH SCH ×2 (09:00→15:00)
[2017-04-15] MEDS: ENOXAPARIN 40 MG/0.4 ML SYR SC SCH (09:37)
[2017-04-15] MEDS ORDERED: MAGNESIUM HYDROXIDE 30 ML UDCUP PO PRN (12:28)
--- NOTE | 2017-04-15 12:32 | HOSPPROG ---
Hospitalist Progress Note Assessment/Plan: #Acute on chronic hypoxic resp failure: due to COPD exacerbation. No infiltrate on CXR. Viral panel pending #COPD exacerbation: due to human metapneumovirus. Cont nebs, steroids #Constipation: MoM #Benign HTN: home med #HLD: statin #Chronic back pain: gabapentin #DVT ppx: ambulating #Disp: warrants inpatient admission with persistent dyspnea, Cont nebs, pulse oximetry Subjective: tired Objective: Vital Signs Temp Pulse Resp BP Pulse Ox 36.8 C 86 18 118/67 95 04/15/17 08:00 04/15/17 11:00 04/15/17 11:00 04/15/17 08:00 04/15/17 11:00 04/14/17 04/15/17 04/16/17 05:59 05:59 05:59 Intake Total 0 Balance 0 - Physical Exam Constitutional: other (tired-appearing) Eyes: PERRL Ears, Nose, Mouth, Throat: moist mucous membranes, hearing normal Cardiovascular: regular rate and rhythym, no murmur, rub, or gallop Respiratory: expiratory wheeze, rhonchi Gastrointestinal: normoactive bowel sounds, soft, non-tender abdomen Genitourinary: no bladder fullness Musculoskeletal: full muscle strength Neurologic: AAOx3 Psychiatric: interacting appropriately ICD10 Worksheet Patient Problems: Problems Problem Status Onset Acute bronchitis Acute Chronic obstructive pulmonary disease with acute exacerbation Acute Chronic Disease Mgmt/Transitional Care Acute Hypoxia Acute
[2017-04-15] MEDS: TIOTROPIUM INHALER 18 MCG/DOSE 5 DOSE/MDI IH SCH (16:23)
[2017-04-15] MEDS: CETIRIZINE 10 MG TAB PO SCH (18:16)
[2017-04-15] MEDS: GUAIFENESIN 1200 MG PO SCH (21:12)
[2017-04-15] MEDS: IRBESARTAN 150 MG TAB PO SCH (21:13)
[2017-04-15] MEDS: LOVASTATIN 40MG PO SCH (21:16)
[2017-04-16] MEDS: IPRATROPIUM/ALBUTEROL 3 ML DEYVIAL IH SCH ×4 (05:29→23:37)
[2017-04-16] MEDS: GABAPENTIN 300 MG CAP PO SCH ×3 (08:24→21:58)
[2017-04-16] MEDS: ASPIRIN EC 81 MG TAB PO SCH (08:26)
--- NOTE | 2017-04-16 08:39 | HOSPPROG ---
Hospitalist Progress Note Assessment/Plan: Patient is a 67y/o female who has underlying COPD, HTN who presented with shortness of breath. Today is my first day caring for her/ chart reviewed. Discussed her care with Dr Bailon who is her PCP. #Acute on chronic hypoxic resp failure: due to COPD exacerbation. on 4 liters of Oxygen #COPD exacerbation: due to human metapneumovirus. Cont nebs, steroids chest xray shows bronchitis/ still feeling poorly/ will give short course of doxycycline hx of smoking #Constipation: no complaints #Benign HTN: bp 118/75 #HLD: statin #Chronic back pain: gabapentin #DVT ppx: ambulating #Dispo: Pending/ still has significant wheezing and rhonchi/ not quite ready for dc Subjective: Patient is anxious to go home, but still very short of breath. Objective: Vital Signs Temp Pulse Resp BP Pulse Ox 36.8 C 83 18 118/75 92 04/16/17 07:33 04/16/17 07:33 04/16/17 07:33 04/16/17 07:33 04/16/17 07:33 04/15/17 04/16/17 04/17/17 05:59 05:59 05:59 Intake Total 0 Balance 0 - Physical Exam Constitutional: no apparent distress Eyes: PERRL Ears, Nose, Mouth, Throat: hearing normal Cardiovascular: regular rate and rhythym Respiratory: no respiratory distress, expiratory wheeze, rhonchi Gastrointestinal: normoactive bowel sounds Skin: warm Musculoskeletal: full muscle strength Neurologic: AAOx3 Psychiatric: interacting appropriately ICD10 Worksheet Patient Problems: Problems Problem Status Onset Acute bronchitis Acute Chronic obstructive pulmonary disease with acute exacerbation Acute Chronic Disease Mgmt/Transitional Care Acute Hypoxia Acute
[2017-04-16] MEDS: CYANO/VITAMIN B12 1000 MCG TAB PO SCH (09:37)
[2017-04-16] MEDS: CHOLECALCIFEROL VIT D3 2,000 UNITS TAB/CAP PO SCH (09:37)
[2017-04-16] MEDS: OMEGA-3 FATTY ACIDS 1,000 MG CAP PO SCH (09:38)
[2017-04-16] MEDS: ENOXAPARIN 40 MG/0.4 ML SYR SC SCH (09:38)
[2017-04-16] MEDS: MULTIVITAMINS 1 EACH TAB PO SCH (09:38)
[2017-04-16] MEDS: GUAIFENESIN 1200 MG PO SCH ×2 (10:24→18:50)
[2017-04-16] MEDS: predniSONE 20 MG TAB PO SCH (10:25)
[2017-04-16] MEDS: DOXYCYCLINE HYCLATE 100 MG CAP/TAB PO SCH ×2 (10:25→20:37)
[2017-04-16] MEDS: TIOTROPIUM INHALER 18 MCG/DOSE 5 DOSE/MDI IH SCH (11:00)
[2017-04-16] MEDS: CETIRIZINE 10 MG TAB PO SCH (18:48)
[2017-04-16] MEDS: LOVASTATIN 40MG PO SCH (20:37)
[2017-04-16] MEDS: IRBESARTAN 150 MG TAB PO SCH (20:38)
[2017-04-17] MEDS: IPRATROPIUM/ALBUTEROL 3 ML DEYVIAL IH SCH ×4 (05:17→22:15)
[2017-04-17] MEDS: predniSONE 20 MG TAB PO SCH (08:58)
[2017-04-17] MEDS: DOXYCYCLINE HYCLATE 100 MG CAP/TAB PO SCH ×2 (08:58→20:51)
[2017-04-17] MEDS: ASPIRIN EC 81 MG TAB PO SCH (08:58)
[2017-04-17] MEDS: GUAIFENESIN 1200 MG PO SCH ×2 (08:58→20:54)
[2017-04-17] MEDS: GABAPENTIN 300 MG CAP PO SCH ×3 (08:59→20:51)
[2017-04-17] MEDS: OMEGA-3 FATTY ACIDS 1,000 MG CAP PO SCH (09:01)
[2017-04-17] MEDS: MULTIVITAMINS 1 EACH TAB PO SCH (09:01)
[2017-04-17] MEDS: CYANO/VITAMIN B12 1000 MCG TAB PO SCH (09:01)
[2017-04-17] MEDS: CHOLECALCIFEROL VIT D3 2,000 UNITS TAB/CAP PO SCH (09:01)
[2017-04-17] MEDS: ENOXAPARIN 40 MG/0.4 ML SYR SC SCH (09:02)
[2017-04-17] MEDS: TIOTROPIUM INHALER 18 MCG/DOSE 5 DOSE/MDI IH SCH (10:58)
[2017-04-17] MEDS ORDERED: predniSONE 20 MG TAB PO SCH (12:21)
--- NOTE | 2017-04-17 12:57 | HOSPPROG ---
Hospitalist Progress Note Assessment/Plan: Patient is a 67y/o female who has underlying COPD, HTN who presented with shortness of breath. #Acute on chronic hypoxic resp failure: due to COPD exacerbation. on 3 liters of Oxygen #COPD exacerbation: due to human metapneumovirus. Cont nebs, steroids chest xray shows bronchitis/ still feeling poorly/ will give short course of doxycycline hx of smoking will get another xray today call into Dr Kidd her databases software consultant #Constipation: no complaints #Benign HTN: bp 119/71 #HLD: statin #Chronic back pain: gabapentin #DVT ppx: ambulating #Dispo: Pending/ still has significant wheezing and rhonchi/ not quite ready for dc/will get a chest xray to further evaluate. Increased prednisone. Will ask pulmonology to see Subjective: Tasneem isn't feeling quite well. has frequent coughing. Objective: Vital Signs Temp Pulse Resp BP Pulse Ox 36.6 C 93 16 119/71 82 L 04/17/17 08:00 04/17/17 11:00 04/17/17 11:00 04/17/17 08:00 04/17/17 12:06 - Physical Exam Constitutional: no apparent distress, appears nourished, not in pain Eyes: PERRL Ears, Nose, Mouth, Throat: hearing normal Cardiovascular: regular rate and rhythym Respiratory: no respiratory distress, expiratory wheeze, rhonchi (scattered throughout worse at the bases) Musculoskeletal: full muscle strength Neurologic: AAOx3 Psychiatric: interacting appropriately, not anxious ICD10 Worksheet Patient Problems: Problems Problem Status Onset Acute bronchitis Acute Chronic obstructive pulmonary disease with acute exacerbation Acute Chronic Disease Mgmt/Transitional Care Acute Hypoxia Acute
[2017-04-17] MEDS: CETIRIZINE 10 MG TAB PO SCH (17:36)
[2017-04-17] MEDS: IRBESARTAN 150 MG TAB PO SCH (20:52)
[2017-04-17] MEDS: LOVASTATIN 40MG PO SCH (20:52)
--- NOTE | 2017-04-18 01:58 | GCON ---
[f rep st] CONSULTATION PULMONARY CONSULTATION DATE OF CONSULTATION: 04/17/2017 HISTORY OF PRESENT ILLNESS: The patient is a 67-year-old female with a recent diagnosis of COPD and remote history of pulmonary embolism, who was admitted on 04/14/17 with increasing shortness of florse ath and hypoxemia. She had an episode of pneumonia and a recent hospitalization and was treated wit h antibiotics and steroids and was found to have low level hypoxemia. She subsequently underwent pu lmonary function testing that showed normal spirometry but an elevated residual volume consistent wi th obstructive lung disease. She was treated with a variety of bronchodilators, including initially Dulera, which was changed to Spiriva, and she tolerated that quite well. She also had a sleep stud y showing obstructive sleep apnea with an AHI of 25; however, this would normalize with oxygen alone . She was last seen in clinic on April 09, 2017. She was actually doing quite well, though she did co mplain of a tickle in the back of her throat. Since that time, she developed worsening cough and sp utum production and increasing shortness of breath and monitors her oxygen requirement and said that her resting oxygen requirement got a lot worse while she was at home. She was subsequently directe d to the emergency department where she was given antibiotics and steroids and nebulizers and admitt ed to floor. She has been slow to respond and has been tried on a variety of different antibiotics. I believe, she was initially on Zithromax followed by Levaquin followed by doxycycline, and I nomi pricilla that sputum cultures grew human metapneumovirus. Her chest x-ray did not show leyda pneumonia b ut was probably consistent more with some bronchitis. She has been getting steroids, which were inc reased yesterday, and she said that today she for the first time she is starting to feel she is turn ing the corner and getting better. REVIEW OF SYSTEMS: Otherwise negative. PAST MEDICAL HISTORY: Includes: 1. Cataracts. 2. COPD as described above. 3. Hypertension. 4. Hyperlipidemia. 5. Remote intraspinal abscess. 6. Chronic back pain with radiculopathy. 7. Osteoarthritis. 8. Peripheral neuropathy. 9. Pulmonary embolism in November 2011. She was treated with Coumadin for 9 months. 10. Mitral regurgitation that appears to be moderate to severe. 11. B12 deficiency. PAST SURGICAL HISTORY: Includes bunionectomy, foot surgery, spinal cyst, tonsillectomy, and wisdom teeth extractions. CURRENT MEDICATIONS: Include albuterol p.r.n., DuoNeb q.6 hours and p.r.n., aspirin, Zyrtec, doxycy ramirez, Pepcid, Neurontin, Avapro, fish oil, Zofran, prednisone 60 mg a day, Spiriva, and vitamin B12 . SOCIAL HISTORY: She has [id number] smoking history, and I believe continues smoke now. FAMILY HISTORY: She was adopted. PHYSICAL EXAMINATION: VITAL SIGNS: She was afebrile. Blood pressure 122/73, heart rate of 88, res pirations 20, oxygen saturation 94% on 2 L. GENERAL: She is a pleasant woman, in no apparent distr ess, able to speak in full sentences without using accessory muscles for breathing. HEENT: Pupils are equally round and reactive to light, nonicteric, and noninjected. Mucous membranes are moist wi thout erythema or exudate. No evidence of thrush. NECK: Supple without adenopathy or jugular vein distention. LUNGS: Breath sounds were somewhat coarse with expiratory wheezing, particularly righ t greater than left, but otherwise good air exchange. HEART: Regular rate and rhythm without murmu rs, rubs, or gallops. ABDOMEN: Soft, nontender, nondistended without hepatosplenomegaly. EXTREMIT IES: Showed no clubbing, cyanosis, or edema. OBJECTIVE DATA: Includes a chest x-ray as described above. She has not had labs since admission, b ut her white count was 5 at that time, hematocrit was 39, platelets were normal. BMP was unremarkab le. ASSESSMENT AND PLAN: Chronic obstructive pulmonary disease exacerbation, probably related to bronch itis, triggered perhaps by the human metapneumovirus. I think the antibiotics that she is on gasper oconnlel are fine and do not feel that any changes need to be made there. I would probably leave her on the prednisone at 60 mg a day now and taper slowly over the next couple of weeks. The DuoNeb is fin e, though it may compete for receptors with Spiriva, which she should remain on. I do not believe s he needs a long-acting beta agonist at the moment, but she may need that in the near future. An Yrn pella or flutter valve might be useful now to help clear secretions and perhaps improve her physical exam findings, and of course whatever oxygen she needs to maintain a saturation of greater than 90% . She has this set up at home already, and she, I think, is inching towards discharge, which I will defer to the hospitalist service but did discuss that possibility with the patient today. /[id number]/MODL
[2017-04-18] MEDS: IPRATROPIUM/ALBUTEROL 3 ML DEYVIAL IH SCH (06:12)
[2017-04-18 07:19] VITALS: BP 114/74; PULSE 82; RESP 16; TEMP 98.4; O2SAT 95
--- NOTE | 2017-04-18 08:55 | HOSPPROG ---
Hospitalist Progress Note Assessment/Plan: Patient is a 67y/o female who has underlying COPD, HTN who presented with shortness of breath. #Acute on chronic hypoxic resp failure: due to COPD exacerbation. on 2 liters of Oxygen #COPD exacerbation: due to human metapneumovirus. Cont nebs, steroids chest xray shows bronchitis/ still feeling poorly/ will give short course of doxycycline hx of smoking repeat chest xray was stable will do a slow wean of steroids #Constipation: no complaints #Benign HTN: bp 114/74 #HLD: statin #Chronic back pain: gabapentin #DVT ppx: ambulating #Dispo: dc today Subjective: Maki is starting to feel better. Objective: Vital Signs Temp Pulse Resp BP Pulse Ox 36.9 C 82 16 114/74 95 04/18/17 07:18 04/18/17 07:18 04/18/17 07:18 04/18/17 07:18 04/18/17 07:18 04/17/17 04/18/17 04/19/17 05:59 05:59 05:59 Intake Total 350 Balance 350 - Physical Exam Constitutional: no apparent distress, appears nourished, not in pain Eyes: PERRL Ears, Nose, Mouth, Throat: hearing normal Cardiovascular: regular rate and rhythym Respiratory: no respiratory distress, expiratory wheeze Skin: warm Musculoskeletal: full muscle strength Neurologic: AAOx3 Psychiatric: not anxious ICD10 Worksheet Patient Problems: Problems Problem Status Onset Acute bronchitis Acute Chronic obstructive pulmonary disease with acute exacerbation Acute Chronic Disease Mgmt/Transitional Care Acute Hypoxia Acute
[2017-04-18] MEDS: CHOLECALCIFEROL VIT D3 2,000 UNITS TAB/CAP PO SCH (09:33)
[2017-04-18] MEDS: CYANO/VITAMIN B12 1000 MCG TAB PO SCH (09:33)
[2017-04-18] MEDS: MULTIVITAMINS 1 EACH TAB PO SCH (09:34)
[2017-04-18] MEDS: OMEGA-3 FATTY ACIDS 1,000 MG CAP PO SCH (09:34)
[2017-04-18] MEDS: DOXYCYCLINE HYCLATE 100 MG CAP/TAB PO SCH (09:40)
[2017-04-18] MEDS: GUAIFENESIN 1200 MG PO SCH (09:41)
[2017-04-18] MEDS: GABAPENTIN 300 MG CAP PO SCH (09:41)
[2017-04-18] MEDS: ASPIRIN EC 81 MG TAB PO SCH (09:41)
--- NOTE | 2017-04-18 13:44 | GDS ---
[f rep st] DISCHARGE SUMMARY DISCHARGE DIAGNOSES: 1. Acute on chronic hypoxemic respiratory failure due to chronic obstructive pulmonary disease. 2. Chronic obstructive pulmonary disease exacerbation. 3. Constipation. 4. Hypertension. 5. Hyperlipidemia. 6. Chronic back pain. CONSULTATIONS: During her stay, Dr. Gaurav Kidd with pulmonary services. BRIEF HISTORY: The patient is a 67-year-old female, with a history of COPD, hypertension and hyperlipidemia, who presented with increased shortness of breath. She had been previously hospitalized with pneumonia earlier this year, was discharged on oxygen. As an outpatient she was prescribed a Z-Felton and was diagnosed with bronchitis. At home she checked her oxygen level and noted it was at 69%, she was admitted for further care. HOSPITAL COURSE: 1. Acute on chronic hypoxemic respiratory failure. She is on 2 L of oxygen, this will be continued. She will further follow up with Dr. Kidd in the outpatient setting. 2. COPD exacerbation. This is due to the human metapneumovirus, she was treated with nebulizers and steroids. We will continue a short course of doxycycline as well as slow weaning of steroids. 3. Constipation, no complaints. 4. Hypertension. Blood pressure is 114/74. 5. Hyperlipidemia, on statin. 6. Chronic back pain, on gabapentin. CONDITION ON DISCHARGE: Stable. Blood pressure is 114/74, O2 saturation on 2 L is 95%. Respiratory rate is 16, pulse is 82, temperature 36.9 Celsius. DISCHARGE MEDICATIONS: Please see the EMR. DISCHARGE INSTRUCTIONS: 1. Slow weaning of the prednisone. 2. Take doxycycline as prescibed. 3. To follow up with Dr. Kidd and Dr. Bailon in the next few weeks. Greater than 30 minutes discharging and coordinating patient's care. /[id number]/MODL MTDD
== END 2017-04-18 10:59 | disposition home or self-care (01) | DRG 190 ==
LOC: F3E 14:33 → OBSVTOIN 04-14 11:34
PROVIDERS: ADMIT Internal Medicine; ATTEND Hospitalist
DX: J44.1 Chronic obstructive pulmonary disease with (acute) exacerbation (principal); J96.21 Acute and chronic respiratory failure with hypoxia; J44.0 Chronic obstructive pulmonary disease with (acute) lower respiratory infection; B97.81 Human metapneumovirus as the cause of diseases classified elsewhere; I10 Essential (primary) hypertension; E78.5 Hyperlipidemia, unspecified; G47.33 Obstructive sleep apnea (adult) (pediatric); J45.909 Unspecified asthma, uncomplicated; M54.10 Radiculopathy, site unspecified; G62.9 Polyneuropathy, unspecified; I34.0 Nonrheumatic mitral (valve) insufficiency; Z86.711 Personal history of pulmonary embolism; K59.00 Constipation, unspecified
CPT/HCPCS: G0378; G0463-PO; J1650

== ENCOUNTER → 2017-05-29 | Emergency (ER) | payer OTHER ==
[2017-05-29 20:47] VITALS: BP 127/81; PULSE 99; RESP 18; TEMP 99.1; O2SAT 93
--- NOTE | 2017-05-29 21:13 | EDPHY ---
H & P Time Seen by Provider: 05/29/17 20:49 HPI/ROS: This morning while working on a project at home this patient sustained a laceration to her right index finger when she slipped with a razor blade while trying to cut cardboard. She reports mild pain to the finger tip and mild bleeding this persisted through the day did despite direct pressure and tape bandage. She saw her daughter who encouraged the patient to come in for evaluation and possible suturing. ROS: No numbness to the affected finger. Musculoskeletal: No bony pain or difficulty moving the affected finger No other injuries and 5 point ROS is otherwise negative Smoking Status: Former smoker Physical Exam: Physical Exam Vital signs are normal. General: No acute distress HEENT: Atraumatic. Eyes: Pupils equal and react to light. Extraocular motions are intact. Lungs: No respiratory distress. Cardiac: Brisk capillary refill is intact throughout. Skin: No rash or pallor. Extremities: Atraumatic normal except for right 2nd finger Right 2nd finger: Patient has 1 cm full-thickness laceration of the distal phalanx palmar aspect with mild bleeding and subcutaneous tissue evident. No foreign bodies on direct examination. No pulsatile bleeding no deeper structures are injured. Neuro: Alert and oriented x3 with no sensorimotor deficits. Constitutional: Initial Vital Signs Temperature (C) 37.3 C 05/29/17 20:42 Heart Rate 99 05/29/17 20:42 Respiratory Rate 18 05/29/17 20:42 Blood Pressure 127/81 H 05/29/17 20:42 O2 Sat (%) 93 05/29/17 20:42 O2 Delivery Mode Nasal Cannula O2 (L/minute) 2 Allergies/Adverse Reactions: Cat/Feline Produc *RETIRED-08/11/12 [Cat/Feline Product Derivatives] Allergy ( Verified 05/29/17 20:47) cefazolin sodium [From Ancef] Allergy (Verified 05/29/17 20:47) Rash nafcillin [Nafcillin] Allergy (Verified 05/29/17 20:47) HYPOKALEMIA Home Medications: Medication Instructions Recorded Albuterol [Proventil Inhaler HFA 2 puffs IH BID #0 12/17/16 (*)] Gabapentin [Neurontin 300 MG (*)] 300 mg PO TID 12/17/16 Irbesartan [Avapro 150 mg (*)] 150 mg PO HS 12/17/16 Lovastatin 40 mg PO HS 12/17/16 Aspirin EC [Aspirin EC 81 mg (*)] 81 mg PO DAILY 04/13/17 Cetirizine [ZyrTEC 10 mg (*)] 10 mg PO DAILY18 04/13/17 Cholecalciferol Vit D3 [Vitamin D3 2,000 units PO DAILY 04/13/17 2000 units tab (OTC)] Cyanocobalamin [Vitamin B12 (*)] 1,000 mcg PO DAILY 04/13/17 Herbals/Supplements -Info Only 1 ea PO AD 04/13/17 Multivitamins [Multivitamin (*)] 1 each PO DAILY 04/13/17 [place]-3 Fatty Acids [Fish Oil 1000 1,000 mg PO DAILY 04/13/17 mg (*)] Tiotropium Inhaler [Spiriva 18 mcg IH DAILY18 04/13/17 Inhaler (RX)] guaiFENesin [Mucinex] 1,200 mg PO BID 04/13/17 predniSONE 40 mg PO DAILY #6 tablet 04/13/17 Doxycycline Hyclate [Vibramycin 100 mg PO BID #7 capsule 04/18/17 100 MG (*)] predniSONE 60 mg PO DAILY #20 tablet 04/18/17 MDM/Departure - MDM Procedures: Digital block: After verbal consent, using a 50 50 mix of 0.5% Marcaine 2% plain lidocaine, 27 gauge needle, chlorhexidine scrub under sterile conditions- 3 injections were administered to the base of the affected finger, 8 mL with good effect. Patient tolerated this well. There were no complications. The wound is 1.5 cm The wound was copiously irrigated with saline. The wound was explored for foreign bodies and none were found. The wound was prepped and draped in the normal sterile fashion. The edges were reapproximated using 4 0 Ethilon-6 sutures-running with good hemostasis and cosmesis. The patient tolerated the procedure well. There were no complications. - Depart Disposition: Home, Routine, Self-Care Clinical Impression: Finger laceration Qualifiers: Encounter type: initial encounter Finger: index finger Damage to nail status: without damage Foreign body presence: without foreign body Laterality: left Qualified Code(s): S61.211A - Laceration without foreign body of left index finger without damage to nail, initial encounter Condition: Good Instructions: Finger Laceration (ED) Additional Instructions: Diagnosis: Finger laceration Plan: Keep the wound clean and dry for the next 2 days, then remove the dressing clean daily with warm soapy water Ibuprofen Tylenol for discomfort as needed. Return for suture removal in 10-12 days Return sooner for redness, discharge or other concerns for infection. Referrals: Michelle Bailon MD [Primary Care Provider] - As per Instructions
== END | disposition home or self-care (01) ==
LOC: CED 20:32
PROC: 0HQFXZZ Repair Right Hand Skin, External Approach (ICD-10-PCS; principal; 2017-05-29)
DX: S61.210A Laceration without foreign body of right index finger without damage to nail, initial encounter (principal); Z79.82 Long term (current) use of aspirin; Z87.891 Personal history of nicotine dependence; W45.8XXA Other foreign body or object entering through skin, initial encounter; Y92.009 Unspecified place in unspecified non-institutional (private) residence as the place of occurrence of the external cause; Y99.8 Other external cause status; Y93.89 Activity, other specified

== ENCOUNTER → 2017-12-25 | Outpatient (CLI) | payer OTHER | LOC: FIMAGING 08:55 | PROVIDERS: ATTEND Internal Medicine | DX: Z12.31 Encounter for screening mammogram for malignant neoplasm of breast (principal) ==

== ENCOUNTER → 2018-02-04 | Outpatient (CLI) | payer OTHER | LOC: BHFA 11:30 | PROVIDERS: ATTEND Internal Medicine Cardiovascular Disease | DX: I34.0 Nonrheumatic mitral (valve) insufficiency (principal) ==

== ENCOUNTER → 2018-08-19 | Outpatient (CLI) | payer OTHER | LOC: FIMAGING 11:32 | PROVIDERS: ATTEND Internal Medicine | DX: M79.89 Other specified soft tissue disorders (principal); M19.041 Primary osteoarthritis, right hand ==

== ENCOUNTER → 2018-12-30 | Outpatient (CLI) | payer OTHER | LOC: FIMAGING 10:28 | PROVIDERS: ATTEND Internal Medicine | DX: Z12.31 Encounter for screening mammogram for malignant neoplasm of breast (principal) ==

== ENCOUNTER → 2019-04-03 | Outpatient (CLI) | payer OTHER | LOC: FIMAGING 12:06 | PROVIDERS: ATTEND Internal Medicine | DX: M54.9 Dorsalgia, unspecified (principal) ==

== ENCOUNTER → 2019-04-09 | Outpatient (CLI) | payer OTHER | LOC: FIMAGING 13:30 | PROVIDERS: ATTEND Internal Medicine | DX: M85.89 Other specified disorders of bone density and structure, multiple sites (principal) ==